=== PATIENT | male | born 1980 | race Caucasian/White ===

== ENCOUNTER 2016-11-15 16:32 | Emergency (ER) | payer SELFPAY ==
[2016-11-15] MEDS ORDERED: CLINDAMYCIN HCL 150 MG CAPSULE ONE (19:16)
[2016-11-15] MEDS ORDERED: HYDROCODONE/ACETAMINOPHEN 5/325MG TABLET ONE (19:16)
== END 2016-11-15 19:25 | disposition home or self-care (01) ==
LOC: ED 16:32
DX: L72.3 Sebaceous cyst (principal); F17.210 Nicotine dependence, cigarettes, uncomplicated
CPT/HCPCS: 87070; 87205; 99283 ×2; 10060 ×2; A9270 ×2